=== PATIENT | male | born 1955 | race Caucasian/White ===

== ENCOUNTER 2023-03-09 18:45 | Emergency (ER) | payer MEDICARE, SELFPAY ==
--- NOTE | ~2023-03-09 | XR_ITS ---
EXAMINATION: XR ABDOMEN KUB CLINICAL INDICATION: Fecal impaction. COMPARISON: None available. TECHNIQUE: AP view of the abdomen. FINDINGS: The bowel gas pattern is normal with no evidence of ileus or obstruction. There is retained stool. No unusual soft tissue calcifications are noted. The bones are unremarkable. XR/XR KUB IMPRESSION: Nonspecific bowel gas pattern. Retained stool.
--- NOTE | ~2023-03-09 | CT_ITS ---
EXAMINATION: CT ABDOMEN AND PELVIS WITHOUT CONTRAST CLINICAL INFORMATION: Pain. COMPARISON: None available. TECHNIQUE: Multidetector volumetric imaging was performed from the superior aspect of the liver through the pubic symphysis. Sagittal and coronal reformatted images were obtained on the technologist's workstation. This CT examination was performed using dose optimization techniques as appropriate, variously including the following: *Automated exposure control *Adjustment of mA and/or kV according to patient size (this includes techniques or standardized protocols for targeted exams where dose is matched to indication/reason for exam; i.e. extremities or head) *Use of iterative reconstruction technique DLP: 301 mGy-cm FINDINGS: LUNG BASES: There appears to be emphysematous change at the lung bases. LIVER, GALLBLADDER, AND BILIARY TREE: The liver is normal in size, shape, and attenuation. No focal hepatic lesion or biliary ductal dilatation is present. The gallbladder is unremarkable with no evidence of radiopaque gallstones, gallbladder wall thickening, or obvious pericholecystic inflammatory changes. PANCREAS: Unremarkable. SPLEEN: Unremarkable. ADRENAL GLANDS: Unremarkable. KIDNEYS AND URETERS: The kidneys are normal in size, shape, and attenuation. No hydronephrosis, hydroureter, or calculi seen. No perinephric stranding. BLADDER: Unremarkable. GASTROINTESTINAL TRACT: There is retained stool throughout the colon. There is gastric body fold thickening. The appendix is visualized and is within normal limits. ABDOMINAL WALL: No significant hernia is appreciated. LYMPH NODES: Normal. VASCULAR: There is atherosclerotic plaque of the abdominal aorta with a 5.2 cm fusiform infrarenal abdominal aortic aneurysm. PELVIC VISCERA: Unremarkable. OSSEOUS STRUCTURES: There is lumbar disc degenerative change which is mild to moderate at L5-S1. There is no acute osseous abnormality. CT/CT abdomen pelvis wo IV con IMPRESSION: The study is limited by lack of oral and IV contrast. 1. 5.2 cm fusiform infrarenal abdominal aortic aneurysm. 2. Gastric body fold thickening. Mass is considered although evaluation limited by lack of contrast. Consider upper endoscopy. 3. Retained stool throughout the colon. 4. Emphysematous change at the lung bases. Fleischner guidelines were followed.
[2023-03-09 19:16] VITALS: BP 107/72; PULSE 82; RESP 16; TEMP 36.2; O2SAT 99; BMI 15.4
--- NOTE | 2023-03-09 19:20 | ED.ABDPAIN ---
HPI - Abdominal Pain General Chief Complaint: Abdominal Pain Stated Complaint: Abdominal pain Time Seen by Provider: 03/09/23 22:58 Source: patient Mode of arrival: ambulatory Limitations: no limitations History of Present Illness HPI narrative: Patient with no diagnosed significant past medical history complaining of chronic abdominal pain for years never seen a hospital insurance clerk pain gets worse after eating never had colonoscopy has not lost any weight does have family history of stomach cancer in parents no blood in the stool moves normal bowels no nausea no vomiting Related Data Previous Rx's Medication Instructions Recorded pantoprazole 40 mg tablet,delayed 40 mg PO DAILY #30 tabs 03/10/23 release (Protonix) Allergies Allergy/AdvReac Type Severity Reaction Status Date / Time No Known Allergies Allergy Verified 03/09/23 19:15 Review of Systems Review of Systems Yes all other systems are reviewed and are negative [facility] Social History Social History Smoked in Last 30 Days: No Use of substances other than those prescribed or required for medical reasons: No Advance Directives: No Advance Directives Information Provided: Yes Physical Exam ED Vital Signs: Vital Signs - 24 hr 03/09/23 19:16 03/09/23 23:33 03/10/23 01:19 Temperature 97.1 F 97.4 F 98.2 F Pulse Rate 82 83 62 Respiratory Rate 16 16 16 Blood Pressure 107/72 95/61 108/62 Pulse Oximetry 99 96 75 L Oxygen Delivery Method Room Air Room Air Room Air BMI result Body Mass Index 15.4 Appearance: Alert. Oriented X3. No acute distress. Eyes: PERRLA, No Nystagmus ENT: Pharynx normal. Oral Mucosa moist Neck: Normal inspection. Neck supple. CVS: Normal heart rate and rhythm. Pulses normal. Respiratory: No respiratory distress. Equal air entry bilateral, no wheezing/rales/rhonchi Abdomen: Soft mild tenderness epigastric area no rebound tenderness. Bowel sounds are present, no mass palpable, no CVA tenderness Skin: Skin warm and dry. Normal skin color. Normal skin turgor. Extremities: No lower extremity edema. No calf tenderness Neuro: Oriented X 3. No motor deficit. No sensory deficit.No cerebellar signs , cranial nerves II-XII intact Course Course Course Narrative: ERMA- 19:20PM 67yoM who has not seen a doctor in over 40 years who is presenting to the ER with his daughter at bedside with complaints of generalized upper abdominal pain over the past 3 weeks. Reports associated weight loss. Reports a significant family history of cancers in the past. He reports that his mother had pancreatic cancer. Reports he has had a decreased appetite. He has had normal stools. He has not had any nausea or vomiting. He denies any chest pain shortness of breath, fevers, cough or congestion, dysuria hematuria, black or bloody stools or any other symptoms complaints or concerns. Plan: Labs, CT scan of abdomen pelvis with IV contrast and UA. Patient will be sent back to the waiting room to be evaluated in the ED. 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 03/09/23 19:44 03/09/23 19:44 Labs: Lab Results 03/09/23 Range/Units 19:44 WBC 9.0 (4.8-10.8) X10*3/uL RBC 5.30 (4.60-5.80) X10*6/uL Hgb 13.6 L (14.0-18.0) g/dl Hct 43.0 (42.0-52.0) % MCV 81.1 (80.0-98.0) fL MCH 25.7 L (27.0-33.0) pg MCHC 31.6 (31.0-36.0) g/dl RDW 13.4 (11.0-16.0) % Plt Count 290 (160-400) X10*3/uL MPV 10.2 (9.4-12.4) fL Immature Gran % (Auto) 0.3 (0.0-0.4) % Neut % (Auto) 67.2 (45-73) % Lymph % (Auto) 21.9 (20-40) % [place] % (Auto) 6.4 (2-11) % Eos % (Auto) 3.2 (0-4) % Baso % (Auto) 1.0 (0-2) % Lymph # (Auto) 2.0 (1.2-4.9) X10*3/uL [place] # (Auto) 0.6 (0.1-1.2) X10*3/uL Eos # (Auto) 0.3 (0.0-0.4) X10*3/uL Baso # (Auto) 0.1 (0.0-0.2) X10*3/uL Abs Immat Gran (auto) 0.03 (0.00-0.03) X10*3/uL Absolute Neuts (auto) 6.0 (2.0-8.3) x10*3/uL Absolute Nucleated RBC 0.000 (0.0-0.012) X10*3/uL Nucleated RBC % (auto) 0.0 (0.0-0.2) /100WBC PT Cancelled INR Cancelled Sodium 142 (135-145) mmol/L Potassium 3.7 (3.3-5.1) mmol/L Chloride 109 H (96-108) mmol/L Carbon Dioxide 24 (22-29) mmol/L Anion Gap 13 (12-20) BUN 17 H (9-16) mg/dL Creatinine 0.85 (0.5-1.4) mg/dL Estim Creat Clear Calc 68.3 Estimated GFR > 60 Random Glucose 120 H (60-115) mg/dL Calcium 9.3 (8.4-10.2) mg/dL Magnesium 2.2 (1.6-2.6) mg/dL Total Bilirubin 0.5 (0.0-1.0) mg/dL Direct Bilirubin 0.2 (0.0-0.5) mg/dL AST 12 (5-37) U/L ALT 6 (0-40) U/L Alkaline Phosphatase 103 (39-117) U/L Total Protein 7.2 (6.5-8.0) g/dL Albumin 3.8 (3.5-5.0) g/dL Lipase 37 (8-78) U/L Medications Administered Discontinued Medications Generic Name Dose Route Start Last Admin Trade Name Freq PRN Reason Stop Dose Admin Omeprazole 40 mg 03/09/23 23:23 03/09/23 23:56 Omeprazole 40 Mg Capsule.Dr ELY 03/09/23 23:24 40 mg ONCE ONE Administration Discharge Plan Discharge Clinical Impression: Abdominal pain, chronic, epigastric Patient Disposition: Home, Self-Care Instructions: Chronic Abdominal Pain (ED) Additional Instructions: You need to follow with hospital insurance clerk for endoscopy to rule out gastric cancer Meanwhile start taking Protonix 1 tablet daily for possible GERD Drink plenty of fluid You have 5.2 cm abdominal aortic aneurysm need to follow-up with your PCP every year Prescriptions: New pantoprazole [Protonix] 40 mg tablet,delayed release (DR/EC) 40 mg PO DAILY Qty: 30 0RF Referrals: Nancy Antonio MD [Physician] - 1 week Interventions: ED Discharge Assessment Last Done: 03/10/23 02:08 Discharge Date/Time: 03/10/23 02:08
[2023-03-09 19:49] LABS: MANUAL DIFF FLAG NO
[2023-03-09 19:50] LABS: Basophils Absolute Auto 0.1 X10*3/uL (0.0-0.2); Eosinophils Absolute Auto 0.3 X10*3/uL (0.0-0.4); Eosinophils Percent Auto 3.2 % (0-4); Hemoglobin 13.6 g/dl (14.0-18.0); Imm Gran Abs Auto 0.03 X10*3/uL (0.00-0.03); Imm Gran Pct Auto 0.3 % (0.0-0.4); Lymphocytes Percent Auto 21.9 % (20-40); Mean Corpuscular HGB Conc 31.6 g/dl (31.0-36.0); Mean Corpuscular Hemoglobin 25.7 pg (27.0-33.0); Mean Corpuscular Volume 81.1 fL (80.0-98.0); Mean Platelet Volume 10.2 fL (9.4-12.4); Monocytes Absolute Auto 0.6 X10*3/uL (0.1-1.2); Monocytes Percent Auto 6.4 % (2-11); Neutrophils Percent Auto 67.2 % (45-73); Platelet Count 290 X10*3/uL (160-400); Red Cell Distribution Width 13.4 % (11.0-16.0)
[2023-03-09 20:05] LABS: Alanine Aminotransferase 6 U/L (0-40); Albumin Level 3.8 g/dL (3.5-5.0); Alkaline Phosphatase 103 U/L (39-117); Anion Gap 13 (12-20); Aspartate Amino Transferase 12 U/L (5-37); Bilirubin Direct 0.2 mg/dL (0.0-0.5); Bilirubin Total 0.5 mg/dL (0.0-1.0); Blood Urea Nitrogen 17 mg/dL (9-16); Calcium 9.3 mg/dL (8.4-10.2); Carbon Dioxide 24 mmol/L (22-29); Chloride 109 mmol/L (96-108); Creatinine Clr Calc Pharmacy 68.3; Estimated Glomerular Filt Rate > 60; Glucose Random 120 mg/dL (60-115); Lipase 37 U/L (8-78); Magnesium 2.2 mg/dL (1.6-2.6); Potassium 3.7 mmol/L (3.3-5.1); Sodium 142 mmol/L (135-145); Total Protein 7.2 g/dL (6.5-8.0)
[2023-03-09 23:33] VITALS: BP 95/61; PULSE 83; RESP 16; TEMP 36.3; O2SAT 96
[2023-03-09] MEDS: Omeprazole 40 MG CAPSULE.DR PO (23:56)
[2023-03-10 01:19] VITALS: BP 108/62; PULSE 62; RESP 16; TEMP 36.8; O2SAT 75
== END 2023-03-10 02:08 | disposition home or self-care (01) ==
PROVIDERS: Physician Assistant Medical; Emergency Provider Internal Medicine
DX: G89.29 Other chronic pain (principal); R10.13 Epigastric pain
CPT/HCPCS: 36415; 74018; 74176; 80053; 82248; 83690; 83735; 85025; 99284